=== PATIENT | female | born 1960 ===

== ENCOUNTER 2017-12-27 07:17 | Day surgery (SDC) | payer MEDICARE, OTHER ==
[2017-12-24 12:10] VITALS: BMI 26.5
[2017-12-27] MEDS ORDERED: Lactated Ringer's 1,000 ML IV ONE ×3 (08:13→14:22)
--- NOTE | 2017-12-27 09:31 | CP.SDSHP ---
Same Day Surgery H & P - History Proposed Procedure: laparoscopic bilateal oophorectomy Pre-Op Diagnosis: persistent ovarian cyst/ pelvic pain - Previous Medical/Surgical History Neuro: Other Comments: hx of herniated disc Previous Surgical History: c/S; d/C;cholecystectomy;shoulder arthoscopy;carpal tunnel;IUD removal - Allergies Allergies: Allergies No Known Allergies Allergy (Verified 12/24/17 12:10) - Physical Exam General Appearance: nad, well nourished Vital Signs: Vital Signs 12/27/17 12/27/17 07:53 07:56 Temperature 98.3 F Pulse Rate 72 72 Respiratory 20 Rate Blood Pressure 136/74 O2 Sat by Pulse 98 Oximetry Mental Status: Alert & Oriented x3 Neuro: WNL Heart: WNL Lungs: WNL GI: WNL - {Optional Preform as Required} Breast: WNL Abdomen: Other 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
[2017-12-27 09:38] LABS: HEMOGLOBIN 12.3 g/dL (12.0-16.0); MEAN CELL VOLUME 94.2 fl (81.0-99.0); MEAN CORPUSCULAR HEMOGLOBIN 31.7 pg (27.0-31.0); MEAN CORPUSCULAR HGB CONC 33.7 g/dL (33.0-37.0); RBC 3.88 Mil/uL (3.80-5.20); RED CELL DISTRIBUTION WIDTH 13.2 % (11.5-14.5); WHITE BLOOD COUNT 8.1 K/uL (4.8-10.8)
[2017-12-27] MEDS ORDERED: cefOXitin IV 1 gm in Dextrose 2 GM/100 ML BAG IVPB ONE (09:47)
[2017-12-27] MEDS ORDERED: Propofol 10 mg/ml Inj (20 ML) ONE (09:52)
[2017-12-27] MEDS ORDERED: Midazolam 2 MG/2 ML VIAL ONE (09:52)
--- NOTE | 2017-12-27 09:52 | CARD ---
APPROVED REPORT EKG Measurement Heart [id number] <Conclusion> Normal sinus rhythm Normal ECG
[2017-12-27] MEDS ORDERED: ePHEDrine 50 mg/ml Inj ONE (09:53)
[2017-12-27] MEDS ORDERED: Lidocaine 4% (Laryng-O-Jet) Kit MM ONE (09:54)
[2017-12-27] MEDS ORDERED: Succinylcholine 200 mg/10 ml Inj IV ONE (09:54)
[2017-12-27] MEDS ORDERED: Rocuronium 10 mg/ml (5 ml) ONE (09:54)
[2017-12-27 10:41] LABS: BLOOD UREA NITROGEN 16 mg/dl (7-17); CALCIUM 9.2 mg/dL (8.4-10.2); GFR AFRICAN-AMERICAN > 60; GFR NON-AFRICAN AMERICAN > 60
[2017-12-27] MEDS ORDERED: Bupivacaine 0.5% Inj(30mL) ONE (10:43)
[2017-12-27] MEDS ORDERED: Dexamethasone 4 mg/1 ml ONE (11:14)
[2017-12-27] MEDS ORDERED: Neostigmine 1:1000 (1 mg/ml) Inj ONE (11:15)
[2017-12-27] MEDS ORDERED: Lactated Ringer's 1,000 ML IV SCH (12:45)
[2017-12-27] MEDS ORDERED: Oxycodone/Acetaminophen 5/325 mg Tab PO PRN (12:48)
[2017-12-27] MEDS: HYDROmorphone 0.5 mg/0.5 ml ISec IVP PRN ×4 (12:55→13:30)
[2017-12-27 14:34] VITALS: RESP 18
--- NOTE | 2017-12-27 15:21 | CP.SDSHP ---
Same Day Surgery H & P - Allergies Allergies: Allergies No Known Allergies Allergy (Verified 12/24/17 12:10) - Physical Exam Vital Signs: Vital Signs 12/27/17 12/27/17 12/27/17 07:53 07:56 12:31 Temperature 98.3 F 96.9 F L Pulse Rate 72 72 79 Respiratory 20 20 Rate Blood Pressure 136/74 123/65 O2 Sat by Pulse 98 100 Oximetry 12/27/17 12/27/17 12/27/17 12:45 12:55 13:05 Temperature 97.2 F L 97.6 F Pulse Rate 67 76 69 Respiratory 20 20 18 Rate Blood Pressure 121/70 130/70 116/73 O2 Sat by Pulse 100 100 100 Oximetry 12/27/17 12/27/17 12/27/17 13:20 13:30 14:00 Temperature 98.1 F Pulse Rate 77 67 67 Respiratory 18 18 18 Rate Blood Pressure 117/73 112/71 112/71 O2 Sat by Pulse 100 98 98 Oximetry 12/27/17 14:30 Temperature 98.5 F Pulse Rate 73 Respiratory 18 Rate Blood Pressure 111/64 O2 Sat by Pulse 94 L Oximetry Short Stay Discharge - Short Stay Discharge Admitting Diagnosis/Reason for Visit: N83.209/ R10.2/ Referrals: Omero Patel MD [Primary Care Provider] - Follow-up: 2 wks office Additional Instructions (Diet, Activity): pelvic and bed rest Progress Note/Discharge Note with Instructions: tolerated procedure well no operative complications Recovered well and in PACU unit discussed procedure done and findings Advised for pelvic and bed rst and given rx for Percocet and folllow up office
[2017-12-27] MEDS ORDERED: Oxycodone/Acetaminophen 5/325 mg Tab PO ONE (17:00)
[2017-12-27 18:17] VITALS: BP 122/71; PULSE 89; TEMP 98.4; O2SAT 96
--- NOTE | 2017-12-28 16:06 | OP ---
PROCEDURE DATE: 12/27/2017 PREOPERATIVE DIAGNOSES: 1. Persistent ovarian cyst, right side. 2. Pelvic pain. POSTOPERATIVE DIAGNOSES: 1. Persistent ovarian cyst, right side, pending pathology report. 2. Pelvic adhesions. OPERATION PERFORMED: Laparoscopic bilateral salpingo-oophorectomy. SURGEON: Pelon Blanca MD MARKETING SERVICES SPECIALIST: Fabrice Snyder MD, who was there for the entire duration of the procedure. The assistance needed in order to manipulate the uterus performed surgery and positioning the patient. ANESTHESIA USED: General endotracheal. ANESTHESIA ADMINISTERED BY: Zehra Seaman MD ESTIMATED BLOOD LOSS: 20 mL. DRAINS USED: None. REPLACEMENTS USED: None. FINDINGS: 1. Cervix appears closed long posterior mobile. 2. Uterus appears normal size, mobile to palpation. 3. Laparoscopy showed adhesions of the large bowel and the appendix to the right pelvic volaris and also large bowel to the left pelvic area. 4. Large 4 to 6 cm right ovarian cyst. 5. Left tube and ovaries appears grossly within normal limits to inspection at this time. 6. Bilateral salpingo-oophorectomy performed using a LigaSure technique without any complications. DESCRIPTION OF THE PROCEDURE: The patient was taken to the operating room and placed in the operating table in a supine position. Following induction of general endotracheal anesthesia, the patient was then replaced in a dorsal lithotomy position. Perineal, genital, and abdominal areas were prepped and draped in a usual sterile manner. At this time, a Delgadillo catheter was then inserted into the bladder with draining clear fluid. The patient was then examined under anesthesia with some of the above findings. Heavy weighted speculum was then placed in the posterior wall of the vagina exposing the cervix. The anterior lip of the cervix was then grasped using a single tooth tenaculum and retracted superiorly. At this time, we then proceeded to place a single tooth tenaculum at the anterior lip of the cervix and the endocervical canal was then dilated using Surinder dilators in an increasing size manner. HUMI cannula was inserted in the endocervical canal in order to manipulate the uterus. The single tooth tenaculum was then removed, no bleeding noted, and attention was then given to the abdomen. At the umbilicus, a Veress needle was then introduced into the abdomen and about 5 liters of carbon dioxide was then introduced into the abdomen thus creating a pneumoperitoneum. A Veress needle was then removed and 1 cm incision was then made at the umbilicus. Under direction visualization, a 10 mm trocar was then introduced into the abdomen. Through the trocar sheath, a laparoscope was then introduced. Visualization of the area underneath the insertion showed no signs of trauma or bleeding. At this time, a left lower quadrant 5 mm trocar was then introduced under direct visualization. Using a probe through the 5 mm trocar sheath, the uterus was then manipulated. Large 4 to 6 cm right ovarian cyst noted to be present, the right tube appears grossly within normal limits. The left tube and ovary also were then inspected and found to be grossly within normal limits to inspection. Following this, adhesions of the large bowel to the left lower quadrant pelvic area noted to be present and also of the large bowel, appendix and cecum to the right pelvic area noted to be present. Following this, a 11 to 12 mm trocar was then introduced into the right lower quadrant without any complications under direction visualization. Following this, we then proceeded to isolate and manipulate the left tube and ovary, and the left infundibulopelvic ligament was then held using ligature apparatus and was then coagulated in several areas and cut under direct visualization. At this time, the two ovarian ligament and fallopian tube were then electrocoagulated using ligature technique and from the uterus. Some of the parametria under left side were also coagulated and cut under direct visualization. The left tube and ovarian were then resected under direct visualization, no bleeding noted. At this time, we then proceeded to manipulate the right tube and ovary, and again the right infundibulopelvic ligament was then identified and was then held using a ligature instrument and electrocoagulated and cut. Minimal bleeding noted and laparoscopic clip was then applied, and hemostasis was contained and secured. The right utero-ovarian ligament was then identified and was then held at several areas using ligature and electrocoagulated and cut, and parametria in the right side again the ovarian cyst, right tube and ovary from the uterus and pelvic wall. At this time, an Endobag was then introduced to the 11 to 12 mm size and the left tube and ovary were then placed in the bag and removed under direct visualization. Specimen sent to pathology for proper pathological evaluation. Endobag was again introduced into the abdomen and intact ovarian cyst, tube and ovary on the right side were then placed into the bag in order to facilitate extrication of the specimen and extraction. Under direction visualization, the right cyst was aspirated inside the bag over about 40 mL of yellowish fluid. This fluid was sent to pathology for proper cytological evaluation. No spillege noted and the right collapse cyst and ovary and tube were then removed under direct visualization. Specimen sent to pathology for proper pathological evaluation. The pelvic cavity was irrigated using saline solution. All operative areas checked and hemostatically secured. The pneumoperitoneum was then partially removed, no bleeding noted and as the right and left lower port trocars were then removed. At this time, the pneumoperitoneum was then removed and umbilical 10 mm trocar and laparoscope was then removed under direct visualization. Following this, the fascia at the right lower quadrant was then held using couple of Lottie clamp and secure using the 0 Vicryl suture in [id number] manner. No defect noted to be in the fascia at this time. Also at the umbilicus, the fascia was then secured using a 0 Vicryl suture with a single suture, again no noted defect. Skin incisions were then closed using a 4-0 Monocryl on all operative areas and no bleeding noted at this time. The incision was then coated with Dermabond in all three areas and at this time HUMI cannula removed, no bleeding noted from the vaginal area. Clear fluid noted to be present in the Delgadillo bag at this time. The patient tolerated the procedure well. There were no complications. She was transferred to the recovery room in satisfactory condition. Sponge, instruments, and needle counts were correct x3. Pelon Blanca MD MTDD
== END 2017-12-27 18:20 | disposition home or self-care (01) ==
LOC: H.OPSURG 07:17
PROVIDERS: ATTEND Specialist
DX: N83.291 Other ovarian cyst, right side (principal); R10.2 Pelvic and perineal pain; I10 Essential (primary) hypertension; M54.2 Cervicalgia; N73.6 Female pelvic peritoneal adhesions (postinfective); Z90.49 Acquired absence of other specified parts of digestive tract
CPT/HCPCS: 36415; 58661; 80048; 85027; 86850; 86900; 88104; 88305; 93005; J0330; J0694; J1100; J1170; J2001; J2250; J2405; J2704; J2710; J3010; J7030; J7120